=== PATIENT | male | born 1975 | race Caucasian/White ===

== ENCOUNTER 2021-01-08 05:39 | Outpatient (CLI) | payer BC ==
[~2021-01-08] VITALS: Ht 190.5 cm; Wt 143.9 kg
[~2021-01-08 05:39] MED LIST: ALPR.5T; ASP325T; ASP81CT; CALC1CAP6; CELEXA; CTLP20T; IBP600T1; MULT-608; VITAMIN C; XANAX
[2021-01-08] MEDS ORDERED: ARIP5TAB12 PO (11:09)
[2021-01-08] MEDS ORDERED: VENL150C PO (11:09)
[2021-01-08] MEDS ORDERED: CLON0.3T PO (11:09)
[2021-01-08] MEDS ORDERED: LOSA50TA63 PO (11:09)
[2021-01-08] MEDS ORDERED: MULT-974 PO (11:09)
[2021-01-08] MEDS ORDERED: ALPR0.5T7 PO (11:09)
== END 2021-01-08 11:20 | disposition home or self-care (01) ==
LOC: PREOP 05:39
PROVIDERS: ATTEND Internal Medicine
DX: Z01.818 Encounter for other preprocedural examination (principal)

== ENCOUNTER 2021-01-16 07:56 | Day surgery (SDC) | payer BC ==
--- NOTE | 2021-01-08 08:07 | HISTORY AND PHYSICAL ---
DATE OF SERVICE: COLONOSCOPY HISTORY AND PHYSICAL HISTORY OF PRESENT ILLNESS: The patient is a pleasant white male referred by Dr. Jewell for screening colonoscopy. He reports a little over 12 years ago, he had colonoscopy for diarrhea, had no problems noted at that time and his diarrhea resolved. He has noted no blood in the stool. Denies bowel habit change or abdominal pain. Denies any current issues with diarrhea or constipation. PAST MEDICAL HISTORY: Significant for depression, hypertension as well as overweight status. FAMILY HISTORY: Mother is living at the age of 71 with hypertension. Father is living at the age of 69 with hypertension. He is not aware of any family history for colon cancer. PAST SURGICAL HISTORY: He had nasal polyps removed as a child x2 and the left inguinal hernia repair in his 20s and a lipoma removed from his back in his 20s as well. SOCIAL HISTORY: He is in electrical sales, quit smoking 4 years ago with a [id number] previous history He does report that between Tuesday and Tuesday, he will consume an average of 30 beers in total, does not drink during the week. Reports that his weight was probably at 20 pounds over the past year, aggravated by COVID. REVIEW OF SYSTEMS: CONSTITUTIONAL: Other than weight gain, he denies night sweats, chills, fever or fatigue. GASTROINTESTINAL: As noted in the HPI. CARDIOVASCULAR: The patient denies chest pain, shortness of breath, orthopnea, PND, pedal edema, syncope or presyncope. PULMONARY: The patient denies cough, wheezing or dyspnea on exertion. PHYSICAL EXAMINATION: GENERAL: Reveals a white male who appears to be in no acute distress. He has a Mallampati 2 oropharyngeal configuration. VITAL SIGNS: Weight 317 pounds. Blood pressure 148/90. CHEST: Clear to auscultation. CARDIOVASCULAR: Reveals a regular rate and rhythm without murmur, S3 or S4. ABDOMEN: Obese nontender. No mass or organomegaly noted. EXTREMITIES: Reveal no cyanosis, clubbing or edema. ASSESSMENT AND PLAN: The patient is set up for screening colonoscopy. Prep instructions and Suprep kit were given and questions were answered. I did discuss the negative health impact of binge drinking that he qualifies for over the weekend, and he was advised cut down, which would also likely help with overweight status as well as blood pressure control and his overall health. I thank you for the referral of this pleasant gentleman. Job ID: [id number] DocumentID: [id number] Dictated Date: 01/05/2021 14:49:38 Charging Manipulator Date: 01/05/2021 15:30:24 Dictated By: ELISSA JENNINGS MD
[~2021-01-16] VITALS: Ht 190.5 cm; Wt 143.9 kg
[~2021-01-16 07:56] MED LIST changes: +ALPR0.5T7 PO; +ARIP5TAB12 PO; +CLON0.3T PO; +LOSA50TA63 PO; +MULT-974 PO; +VENL150C PO
[2021-01-16] MEDS ORDERED: LACTATED RINGERS 1,000 ML IV ONE (08:01)
[2021-01-16] MEDS ORDERED: LIDOCAINE JELLY 2% 6 ML SYRINGE MM PRN (08:15)
[2021-01-16] MEDS ORDERED: LACTATED RINGERS 1,000 ML IV PRN (08:15)
[2021-01-16] MEDS ORDERED: PROPOFOL INJECTION 50 ML IV ONE ×2 (08:26→08:52)
[2021-01-16] MEDS ORDERED: MIDAZOLAM 2 MG/2 ML (VERSED) VIAL ONE (08:27)
[2021-01-16] MEDS ORDERED: LIDOCAINE JELLY 2% 6 ML SYRINGE ONE (08:46)
--- NOTE | 2021-01-16 08:50 | Pre-Op Note & Conscious Sedat ---
Pre-Operative Progress Note H&P Reviewed The H&P was reviewed, patient examined and no changes noted. Date H&P Reviewed: Jan 16, 2021 Time H&P Reviewed: 08:30 Conscious Sedation Pre-Proced ASA Score 2 For ASA 3 and 4: Consider anesthesia and medical clearance. Also, for patients with a history of failed moderate sedation consider anesthesia. Airway Lungs Heart ASA score ASA 1: a normal healthy patient ASA 2: a patient with a mild systemic disease (mid diabetes, controlled hypertension, obesity ASA 3: a patient with a severe systemic disease that limits activity (angina, COPD, prior Myocardial infarction) ASA 4: a patient with an incapacitating disease that is a constant threat to life (CHF, renal failure) ASA 5: a moribund patient not expected to survive 24 hrs. (ruptured aneurysm) ASA 6: a declared brain- patient whose organs are being harvested. For emergent operations, add the letter E after the classification Mallampati Classification Grade 2 Sedation Plan Analgesia, Amnesia, Plan communicated to team members, Discussed options with patient/fam, Discussed risks with patient/fam The patient is an appropriate candidate to undergo the planned procedure, sedation, and anesthesia. The patient immediately re-assessed prior to indication. ELISSA JENNINGS MD Jan 16, 2021 08:50
[2021-01-16 10:09] VITALS: BP 142/90
--- NOTE | 2021-01-16 10:39 | Anesthesia-General Post-Op ---
MAC Patient Condition Mental Status/LOC: Same as Preop Cardiovascular: Satisfactory Nausea/Vomiting: Absent Respiratory: Satisfactory Pain: Controlled Complications: Absent Post Op Complications Complications None Follow Up Care/Instructions Patient Instructions None needed. Anesthesiology Discharge Order Discharge Order Patient is doing well, no complaints, stable vital signs, no apparent adverse anesthesia problems. No complications reported per nursing. GÓMEZ SHEIKH CRNA Jan 16, 2021 10:39
--- NOTE | 2021-01-16 14:52 | OPERATIVE REPORT ---
DATE OF SERVICE: 01/16/2021 COLONOSCOPY SUMMARY INDICATION FOR THE PROCEDURE: Screening. DESCRIPTION OF PROCEDURE: The patient was placed in the left lateral decubitus position. Prior to undergoing colonoscopy, digital rectal evaluation was performed. Anal sphincter tone was normal and the perianal reflexes intact. No abnormalities were noted on digital inspection of anal canal or distal rectal vault. The prostate was normal in size, anodular, nontender to digital inspection. The colonoscope was then inserted into the rectum and under direct visualization advanced to cecum. The cecum was identified by identification of the ileocecal valve and cecal strap. Photographic documentation was obtained. Careful inspection was made as colonoscope withdrawn. The patient tolerated the procedure well. FINDINGS: There was no evidence for internal or external hemorrhoids and the rectum, sigmoid colon, descending colon, splenic flexure, transverse colon, hepatic flexure, ascending colon and cecum were unremarkable with no evidence for diverticular disease or neoplasia. ASSESSMENT: Normal colonoscopy to the cecum. As long as the patient continues to report no family history for colon cancer, we would advocate consideration for repeat screening colonoscopy in 10 years. I thank you for the referral of this pleasant gentleman. Job ID: [id number] DocumentID: [id number] Dictated Date: 01/16/2021 11:31:37 Correctional Program Specialist Date: 01/16/2021 14:52:03 Dictated By: ELISSA JENNINGS MD
== END 2021-01-16 10:30 | disposition home or self-care (01) ==
LOC: ENDO 07:56
PROVIDERS: ATTEND Internal Medicine
DX: Z12.11 Encounter for screening for malignant neoplasm of colon (principal); I10 Essential (primary) hypertension; F32.9 Major depressive disorder, single episode, unspecified; F41.9 Anxiety disorder, unspecified; E66.9 Obesity, unspecified; Z68.39 Body mass index [BMI] 39.0-39.9, adult; Z79.899 Other long term (current) drug therapy; Z87.891 Personal history of nicotine dependence